=== PATIENT | male | born 1980 | race Caucasian/White ===

== ENCOUNTER → 2018-06-10 | Outpatient (CLI) | payer OTHER | LOC: SUN.DIA 11:58 | DX: E11.9 Type 2 diabetes mellitus without complications (principal); E78.5 Hyperlipidemia, unspecified; I10 Essential (primary) hypertension | CPT/HCPCS: G0108 ==

== ENCOUNTER → 2018-06-22 | Outpatient (CLI) | payer OTHER | LOC: SUN.DIA 10:09 | DX: E11.9 Type 2 diabetes mellitus without complications (principal); E78.5 Hyperlipidemia, unspecified; I10 Essential (primary) hypertension | CPT/HCPCS: G0108 ==

== ENCOUNTER → 2018-07-07 | Outpatient (CLI) | payer OTHER | LOC: SUN.DIA 06-30 14:35 | DX: E11.9 Type 2 diabetes mellitus without complications (principal); E78.5 Hyperlipidemia, unspecified; I10 Essential (primary) hypertension | CPT/HCPCS: G0109 ==

== ENCOUNTER → 2018-07-14 | Outpatient (CLI) | payer OTHER | LOC: SUN.DIA 10:26 | DX: E11.9 Type 2 diabetes mellitus without complications (principal); E78.5 Hyperlipidemia, unspecified; I10 Essential (primary) hypertension | CPT/HCPCS: G0109 ==

== ENCOUNTER → 2018-07-21 | Outpatient (CLI) | payer OTHER | LOC: SUN.DIA 10:32 | DX: E11.9 Type 2 diabetes mellitus without complications (principal); E78.5 Hyperlipidemia, unspecified; I10 Essential (primary) hypertension | CPT/HCPCS: G0109 ==

== ENCOUNTER → 2018-10-19 | Outpatient (CLI) | payer OTHER | LOC: SUN.DIA 08-25 15:15 | DX: E11.9 Type 2 diabetes mellitus without complications (principal); E78.5 Hyperlipidemia, unspecified; I10 Essential (primary) hypertension | CPT/HCPCS: G0108 ==

== ENCOUNTER → 2019-01-11 | Outpatient (CLI) | payer OTHER | LOC: DIA.ED 08:58 | DX: E11.9 Type 2 diabetes mellitus without complications (principal); E78.5 Hyperlipidemia, unspecified; I10 Essential (primary) hypertension | CPT/HCPCS: G0108 ==

== ENCOUNTER → 2019-04-12 | Outpatient (CLI) | payer OTHER | LOC: DIA.ED 08:53 | DX: E11.9 Type 2 diabetes mellitus without complications (principal); E78.5 Hyperlipidemia, unspecified; I10 Essential (primary) hypertension | CPT/HCPCS: G0108 ==